=== PATIENT | male | born 1985 | race Caucasian/White ===

== ENCOUNTER 2018-06-04 16:06 | Emergency (ER) | payer OTHER ==
[2018-06-04] MEDS ORDERED: LIDOCAINE 1% W/EPI MPF 30 ML SOL ONE (16:16)
[2018-06-04] MEDS ORDERED: BACITRACIN 500 U/GM OIN TOP ONE ×2 (16:17→16:42)
[2018-06-04] MEDS ORDERED: LIDOCAINE 1% W/EPI MPF 30 ML SOL INFIL ONE (16:30)
[2018-06-04 16:45] VITALS: RESP 18
[2018-06-04] MEDS ORDERED: TDAP VACCINE 0.5 ML SUS IM ONE ×2 (16:49→16:51)
[2018-06-04 17:39] VITALS: BP 142/97; PULSE 78; TEMP 98.1; O2SAT 98
== END 2018-06-04 17:15 | disposition home or self-care (01) | DRG 605 ==
LOC: ED 16:06
DX: S81.012A Laceration without foreign body, left knee, initial encounter (principal); W29.3XXA Contact with powered garden and outdoor hand tools and machinery, initial encounter
CPT/HCPCS: 12002; 12032; 90471; 90715; 99285; A6402; A6446; A9270-GY